=== PATIENT | female | born 1965 ===

== ENCOUNTER → 2018-11-14 13:47 | Outpatient (REF) | payer BC, SELFPAY | LOC: LAB 13:47 | PROVIDERS: Family Provider Family Medicine; PCP Family Medicine; Visit Provider Naturopath | DX: N39.0 Urinary tract infection, site not specified (principal) | CPT/HCPCS: 87077; 87086; 87186 ==

== ENCOUNTER → 2018-12-06 19:12 | Outpatient (REF) | payer OTHER, SELFPAY ==
[2018-12-06 22:09] LABS: Adenovirus Not Detected (Not Detect); Coronavirus 229E Not Detected (Not Detect); Coronavirus HKU1 Not Detected (Not Detect); Coronavirus NL 63 Not Detected (Not Detect); Coronavirus OC43 Not Detected (Not Detect); Human Metapneumovirus Not Detected (Not Detect); Human Rhinovirus/Enterovirus Not Detected (Not Detect); Influenza A Not Detected (Not Detect)
[2018-12-06 22:10] LABS: Bordetella pertussis Not Detected (Not Detect); Chlamydophila pneumoniae Not Detected (Not Detect); Influenza B Not Detected (Not Detect); Mycoplasma pneumoniae Not Detected (Not Detect); Parainfluenza Virus 1 Not Detected (Not Detect); Parainfluenza Virus 2 Not Detected (Not Detect); Parainfluenza Virus 3 Not Detected (Not Detect); Parainfluenza Virus 4 Not Detected (Not Detect); Respiratory Syncytial Virus Not Detected (Not Detect)
== END ==
LOC: LAB 19:12
PROVIDERS: Family Provider Family Medicine; PCP Family Medicine; Visit Provider Naturopath
DX: R09.3 Abnormal sputum (principal); R05 Cough; R09.89 Other specified symptoms and signs involving the circulatory and respiratory systems
CPT/HCPCS: 87633